=== PATIENT | male | born 1985 ===

== ENCOUNTER 2024-09-25 12:53 | Emergency (ER) | payer OTHER ==
[2024-09-25] MEDS: traMADol 50 MG Tab PO STA (13:55)
== END 2024-09-25 14:19 | disposition home or self-care (01) ==
LOC: MW.ED 12:53
DX: M25.561 Pain in right knee (principal); M25.562 Pain in left knee; M47.816 Spondylosis without myelopathy or radiculopathy, lumbar region; Z79.899 Other long term (current) drug therapy; Z75.8 Other problems related to medical facilities and other health care; V49.50XA Passenger injured in collision with unspecified motor vehicles in traffic accident, initial encounter
CPT/HCPCS: 70450; 72125; 72128; 72131; 99284; A9270

== ENCOUNTER 2025-02-25 15:20 | Emergency (ER) | payer SELFPAY ==
[2025-02-25 16:21] LABS: CORONAVIRUS COVID-19 NAA NEGATIVE (NEGATIVE); INFLUENZA A NAA NEGATIVE (NEGATIVE); INFLUENZA B NAA NEGATIVE (NEGATIVE)
[2025-02-25] MEDS: Lidocaine 2% Viscous Solution 15 ML UD PO ONE (16:25)
[2025-02-25] MEDS: Acetaminophen 325 MG Tab PO ONE (16:25)
[2025-02-25] MEDS: Ibuprofen 600 MG Tab PO ONE (16:26)
[2025-02-25] MEDS: Penicillin G Benzathine 1,200,000 Units/2 ML Syringe IM ONE (17:01)
== END 2025-02-25 17:26 | disposition home or self-care (01) ==
LOC: MW.ED 15:20
DX: J02.0 Streptococcal pharyngitis (principal)
CPT/HCPCS: 0240U; 87651; 96372; 99284; A9270; J0561